=== PATIENT | male | born 1970 | race Caucasian/White ===

== ENCOUNTER 2025-03-13 13:35 | Outpatient (OUT) | payer BC, SELFPAY ==
[2025-03-13 15:21] LABS: Prostate Specific Antigen Dx 1.12 ng/mL (<=4.00)
== END 2025-03-13 13:36 | disposition home or self-care (01) ==
LOC: LAB 13:38
PROVIDERS: PCP Family Medicine; Visit Provider Urology
DX: Z80.42 Family history of malignant neoplasm of prostate (principal)
CPT/HCPCS: 36415; 84153